=== PATIENT | female | born 1980 | race Two or more races ===

== ENCOUNTER 2022-01-21 05:40 | Emergency (ER) | payer MEDICAID ==
[~2022-01-21] VITALS: Ht 162.6 cm; Wt 84.0 kg
[2022-01-21] MEDS ORDERED: IBUPROFEN 600MG TABLET PO ONE (06:30)
[2022-01-21 06:59] LABS: CHLORIDE 107 mEq/L (98-107)
[2022-01-21 07:04] LABS: EOSINOPHILS % 8.4 % (0.0-5.0); HEMATOCRIT. 39.7 % (36.0-48.0); HEMOGLOBIN. 13.6 g/dL (12.0-16.0); LYMPHOCYTES % 26.1 % (20.0-50.0); MEAN CORPUSCULAR HEMOGLOBIN 31.2 pg (28.0-32.0); MEAN PLATELET VOLUME 8.6 fl (7.4-10.4); MONOCYTES % 9.8 % (2.0-8.0); NEUTROPHILS % 54.7 % (40.0-76.0); PLATELET 281 x1000/uL (130-400); RED BLOOD CELL COUNT 4.36 mill/uL (4.2-5.4); RED CELL DISTRIBUTION WIDTH 12.7 % (11.6-14.6)
[2022-01-21 07:15] VITALS: BP 121/98
[2022-01-21 07:28] LABS: HCG SCREEN NEGATIVE
[2022-01-21] MEDS ORDERED: IBUP-2029 MT (10:06)
== END 2022-01-21 12:15 | disposition home or self-care (01) ==
LOC: ER 05:40
DX: R10.2 Pelvic and perineal pain (principal); N20.0 Calculus of kidney; R03.0 Elevated blood-pressure reading, without diagnosis of hypertension; E83.01 Wilson's disease; Z86.73 Personal history of transient ischemic attack (TIA), and cerebral infarction without residual deficits; Z97.5 Presence of (intrauterine) contraceptive device
CPT/HCPCS: 36415; 74176; 80053; 84703; 85025; 99284